=== PATIENT | female | born 1955 | race Caucasian/White ===

== ENCOUNTER → 2020-02-22 14:38 | Outpatient (CLI) | payer SELFPAY ==
--- NOTE | 2020-02-22 15:02 | CT_ITS ---
STUDY: CT LEFT HIP, KNEE AND ANKLE WITHOUT CONTRAST REASON FOR EXAM: Female, 64 years old. Left knee replacement. RADIATION DOSAGE (If Supplied By Facility): CTDIvol = ( 19.12 ) mGy, DLP = ( 1324.48 ) mGycm TECHNIQUE: Thin section transaxial imaging of the hip, knee and ankle was obtained, with sagittal and coronal reconstructed images. Individualized dose optimization techniques were used for this CT. COMPARISON: None. FINDINGS: There are osteoarthritic changes of the femoral head with marginal osteophyte formation. There is osteoarthritic spur formation of the acetabular rim. There is mild articular joint space narrowing. Normal visualized superior and inferior pubic rami and ischial tuberosities. Advanced degenerative arthrosis noted in the left knee were prominent in the medial femorotibial joint. Anatomic alignment of the osseous structures in the ankle. CT/Extremity Lower without Contra IMPRESSION: Severe degenerative arthrosis knee left knee. Electronically Signed: Lashae Page, at 3:00 EST Tel , Service support ,
== END ==
PROVIDERS: PCP Family Medicine; Referring Provider Specialist; Visit Provider Specialist
DX: M21.162 Varus deformity, not elsewhere classified, left knee (principal)
CPT/HCPCS: 73700

== ENCOUNTER 2020-03-09 08:30 | Observation (INO) | payer SELFPAY ==
[2020-02-22 15:58] LABS: Absolute Neutrophil Count 2.8 X10^3/uL (2.0-7.7); Basophil# 0.04 X10^3/uL; Basophil% 0.7 % (0-1); Eosinophil# 0.14 X10^3/uL; Eosinophils% 2.4 % (0-5); Hematocrit 41.5 % (37-47); Hemoglobin 13.5 g/dL (12.0-15.0); Lymphocyte % 37.8 % (19-41); Mean Corp Hgb Conc 32.5 g/dL (32-36); Mean Corpuscular Hgb 28.9 pg (27.0-32.0); Mean Corpuscular Volume 88.9 fL (81-99); Monocyte# 0.59 X10^3/uL; Monocyte% 10.1 % (0-10); NRBC Flagged by Analyzer 0 % (0-5); Neutrophil # 2.82 X10^3/uL (2.7-7.7); Neutrophil % 48.5 % (47-70); Platelet Count 201 K/mm3 (150-450); RBC Distribution Width CV 12.3 % (11.6-14.6); Red Blood Count 4.67 M/mm3 (4.2-5.4); White Blood Count 5.8 K/mm3 (4.4-11.0)
--- NOTE | 2020-02-22 16:48 | PCM.HP.BLA ---
History and Physical History and Physical [facility] Patient Name: Gwendolyn Swanson : 1955 From: BARBER CAI PA-C DATE OF SURGERY: 03/09/2020 SCHEDULED PROCEDURE: left total knee arthroplasty HISTORY OF PRESENT ILLNESS: Preoperative history and physical exam was performed on February 22, 2020. This is a 64-year-old female who has had ongoing pain for several years with her left knee. Patient had an injury in 2014 in which she had to have a arthroscopic surgery. Patient's pain has been constant, aching, sharp, stabbing. She gets occasional spasms in the knee. Patient states she has increased pain with walking and bending or kneeling. Pain is increased with going up and down stairs. Her pain is over the medial joint line. Patient has tried previous conservative measures including stem cell injections with no relief, meloxicam, Visco supplementation injections without relief, compression socks. Patient has tripped/stumbled due to the knee pain. She feels unsafe walking on uneven surfaces. Patient has difficulty with activities of daily living including shopping and leisure activities such as walking. Patient has been using a walker for the past 2 weeks. She denies recent chest pain, shortness of breath, fevers chills, recent infections. We are obtaining surgical clearance from her primary care physician Dr. Moses. After failing conservative measures and discussing treatment options with Dr. Bc Earl, the patient does wish to proceed with a left total knee arthroplasty. REVIEW OF SYSTEMS: ROS: Const: Denies anorexia, change in appetite, fever, hard of hearing, vision problems and weight change. CV: Reports irregular heartbeat, but denies chest pain, heart murmur and peripheral vascular disease. Resp: Reports asthma and cough, but denies pneumonia, sleep apnea, SOB, tuberculosis and wheezing. GI: Reports constipation and diarrhea, but denies difficulty swallowing, heartburn, nausea, bloody stools and vomiting. : Denies female genital problems. Urinary: denies incontinence. Musculo: Reports leg swelling, limp, trouble walking and weakness. Skin: Denies Raynaud's, history of shingles and tattoo. Neuro: Reports numbness/tingling but denies ambulatory dysfunction, dizziness and tremor. Psych: Denies anxiety, depression, insomnia, mental illness and stress. Gerardo/Lymph: Reports bleeding/bruising tendency, but denies anemia and past transfusion. Reviewed and updated. PAST MEDICAL HISTORY: PMH: Medical Problems: Arthritis, Fibromyalgia, High Blood Pressure, Mitral Valve Prolapse, Hypercholesterolemia Accidents: Negative For None Surgical Hx: Gall Bladder - 1985 [facility] Appendectomy - 1985 D&C - 1996 [place] [facility] LT Knee Arthroscopy Anesthesia Complications: None Assistive Devices: Glasses Reviewed, no changes. SOCIAL HISTORY: SH: Marital: .Occupation: Homemaker.Work Status: Housewife.Hand Dominance: Right-handed. Personal Habits: Cigarette Use: Never Smoked Cigarettes.Alcohol: Negative For Denies use.Drug Use: Denies Use.Enjoy Exercising: Never Exercises. Reviewed and updated. VITALS: Ht: 62.5 Wt: 191lb Wt k.638 BMI: 34.4 BP: 120/78 Pulse: 78 T: 96.8 T: 36.0C Pain Level: 5 ALLERGIES: Cotrim DS - Rash MEDICATIONS: Diphenatol 1-2 four times a day prn, Elavil 10 mg one po qhs, Diflucan 150 mg 1 by mouth, Inderal 20 mg one q am, Lopid 600 mg one bid, Tylenol/Codeine #3 300-30 mg 1-2 po q 4-6hrs prn pain, Rectosol HC one po qhs, Advair Diskus prn, Singulair 10 mg 1 po qd, Lisinopril 20 mg 1 po qd, Multivitamin daily, Glucosamine Chondroitin 750/600 mg. 1 po qd, Hydrochlorothiazide 25 mg 1po qday, Pravastatin Sodium 40 mg 1po qhs, Xanax 2 mg prn, Amlodipine Besylate 5 mg 1po bid, Toprol XL 50 mg 1po qhs, Vitamin E 400 Unit 1po qday, Vitamin C 500mg 1po qday, Fish Oil 1000 mg 1po qday, Potassium 99 mg 1po qday, Metformin HCL 850 mg 1po daily, Vitamin D3 25 mcg (1000 Ut) 2po daily, Tramadol HCL 50 mg 1-2 by mouth every 6 hours as needed pain PRE-OP EXAM: General appearance:NORMAL Other: Eyes: Conjunctivae and lids: NORMAL Pupils: ERR Ears, Nose, Mouth, and Throat: NORMAL Other: Inspection of lips, teeth and gums: NORMAL Other: Neck: Examination of neck: no masses noted. Respiratory: Assessment of respiratory effort: NORMAL Other: Auscultation of lungs: clear to auscultation no wheezes, rhonchi or rales. Cardiovascular: Auscultation of heart: regular rate and rhythm, no murmurs, gallops or rubs. Exam of carotid arteries: NORMAL Other: Gastrointestinal: Exam of abdomen: soft, nontender, nondistended bowel sounds present. PHYSICAL EXAMINATION: Patient walks with an antalgic gait. Left knee is cool to touch without erythema or signs of infection. Patient does have positive effusion. Range of motion: He lacks 5 of full extension to 120 flexion with crepitus. There is tenderness to palpation over the medial joint line. She has correctable varus alignment. Sensation intact to light touch. IMAGING STUDIES: Previous x-rays of the left knee reveal varus alignment with medial joint space narrowing, subchondral sclerosis, osteophyte formation consistent with severe tricompartmental osteoarthritis IMPRESSION: 1. Left knee severe tricompartmental osteoarthritis 2. Hypertension 3. Fibromyalgia 4. Hypercholesterolemia 5. Mitral valve prolapse PLAN: Dr. Bc Earl did discuss and review with the patient all treatment options including surgical versus nonsurgical options. Patient does wish to proceed with the above-stated procedure. Potential risks, benefits, and complications of the procedure were discussed in detail including but not limited to , infection, nerve and blood vessel damage, persistent pain, numbness, tingling, paresthesias, blood clot, pulmonary embolism, and requirement for possible further surgery. The patient expressed full understanding and has no further questions for the doctor. Patient does agree to proceed with the above-stated procedure and has signed the surgery consent form. We discussed the current risks associated with COVID 19. This does include the risk of exposure while in the hospital. Patient was reassured local hospitals have low infection rates and are taking all necessary precautions to avoid exposure to patients. In addition, we discussed strategies that can be used to help limit exposure including those that limit the patient's time in the hospital. Also using strategies to limit the patient's need for continued inpatient services after being discharged from the hospital. Patient was notified that we will need to comply with any screening or testing the hospital wishes to perform or that surgery may be delayed for any positive results. This dictation was created using voice recognition software. Phonetic and/or grammatical errors may exist. ___ I have re-examined the patient. There are no clinical changes since date of exam. ___ See progress notes for changes. ___ Dictated on admission Date: Time: Signature:
[2020-02-22 17:12] LABS: Anion Gap 6 (5-15); BUN 32 mg/dL (7-18); Calcium,Total 11.2 mg/dL (8.5-10.1); Chloride 105 mmol/L (98-107); Creatinine, Serum 0.67 mg/dL (0.55-1.02); EST Glomerular Filtration Rate 95 mL/min (>60); Est Glom Filt Rate - Afr Amer 115 mL/min (>60); Glucose 115 mg/dL (74-106); Potassium 3.8 mmol/L (3.5-5.1); Sodium Level 140 mmol/L (136-145)
[2020-02-24 11:01] LABS: Magnesium 1.9 mg/dL (1.6-2.6)
[2020-02-24 11:13] LABS: Hemoglobin A1c 6.8 % (3.8-5.6)
--- NOTE | 2020-03-07 09:14 | EKG12_ITS ---
Test Reason : PRE OP Blood Pressure : / mmHG Vent. Rate : 077 BPM Atrial Rate : 077 BPM P-R Int : 178 ms QRS Dur : 088 ms QT Int : 380 ms P-R-T Axes : 048 -03 020 degrees QTc Int : 430 ms Normal sinus rhythm Nonspecific ST and T wave abnormality Abnormal ECG Confirmed by KRYSTAL STROUD, VIANEY ([id number]), online editor VITA HERMAN ([id number]) on 03/08/2020 9:24:55 AM Referred By: Bc Earl Confirmed By:VIANEY RICE MD
[2020-03-09] VITALS (14 sets, daily range): BP systolic 113–144; BP diastolic 64–95; PULSE 76–103; RESP 16–18; TEMP 36.1–36.8; O2SAT 93–100; BMI 32.4
[2020-03-09] MEDS: Lactated Ringers 1,000 ML 75 ML IV (07:00)
[2020-03-09] MEDS: Lactated Ringers 1,000 ML 125 ML IV ×2 (07:00→20:53)
[2020-03-09] MEDS: Lactated Ringers 1,000 ML 999 ML IV ×2 (07:00→08:34)
[2020-03-09] MEDS: Gabapentin 600 MG Tablet PO (08:33)
[2020-03-09] MEDS: Celecoxib 200 MG Capsule 400 MG PO (08:33)
[2020-03-09] MEDS: Acetaminophen 500 MG Tablet 1000 MG PO ×3 (08:33→22:47)
[2020-03-09] MEDS: Scopolamine 1mg/72hr Patch 1 PATCH TD (08:33)
[2020-03-09 08:45] LABS: Bedside Glucose 149 mg/dL (70-110)
[2020-03-09] MEDS: Cefazolin 2 GM in 0.9% Normal Saline 100 ML IV (08:57)
[2020-03-09] MEDS: dexAMETHasone 10 MG/ML Vial IV (09:30)
--- NOTE | 2020-03-09 10:35 | OP.PCM_ITS ---
Report of Operation Date of Procedure: 03/09/20 Pre-Operative Diagnosis: Left knee primary osteoarthritis Post-Operative Diagnosis: Left knee primary osteoarthritis Surgery/Procedure Performed:: Left knee minimally invasive robotic assisted total knee replacement Description of Surgical Findings:: Stable knee with good patella tracking disability insurance hearing officer: Charlie Morrison Type of Anesthesia:: Spinal Anesthesiologist: Martinez Colin Special Medications: 2 g Ancef, 1 g TXA at incision, 1 g TXA closure, 10 mg Decadron, joint cocktail (5 mg Duramorph, 30 mL of 0.5% Ropivicaine, 1000 units of epinephrine, 30 mg of Toradol) Specimen's removed: Bony cuts Estimated Blood Loss (mL): 75 Fluids Replaced: 1500 mL crystalloid Description of Procedure: Implants used: 1. Paula size 2 triathlon cruciate retaining distal femoral press-fit component 2. Paula size 3 press-fit tritanium tibial baseplate 3. [place] X3 11 millimeters CS polyethylene 4. Paula X3 29 mm asymmetric patella Brief history operative indications: 64-year-old F with history of left knee osteoarthritis with radiographic findings with loss of joint space, osteophyte formation and subchondral sclerosis. Failed conservative measures as mentioned in the H&P. Discussion of total knee arthroplasty as well as risk and benefits were discussed the patient including but not limited to blood loss, DVTs, PEs, neurovascular damage, general risk of anesthesia including loss of life, and stiffness or instability were discussed with patient. Patient demonstrated understanding and was able to sign informed consent. Procedure: On the date of procedure patient's left lower extremity was marked in the preoperative area. The patient was then taken back to the operating room where the patient was placed on the table in the supine position. All bony prominences were identified a well-padded. Anesthesia assumed control of the C-spine and airway and remained controlled throughout the remainder of the procedure. A tourniquet was placed on the left upper thigh and the leg was prepped in a sterile fashion. The surgeon then scrubbed at this time .Upon reentering the room left lower extremity was draped in a standard orthopedic fashion. A timeout was then called and everyone agreed upon the side, the site, the procedure to be performed, patient's identity and antibiotics given. Esmarch bandage was used to exsanguinate the extremity and the tourniquet was placed up to 250 mmHg with the knee in flexion. A midline skin incision was made and sharp dissection was taken down through skin subcutaneous tissue and fat. The standard medial parapatellar incision was made and the patella was subluxed laterally. An Appropriate deep MCL release was done and the fat pad was resected. Our attention was then directed to the patella. The patella was everted and a flat resection was made. The knee was then flexed up in 2 femoral pins were placed inside the incision and 2 tibial pins were placed outside the incision in the medial tibia bicortically. Once this was completed the 2 checkpoints in the femur and tibia were placed. Knee was then flexed up and the bony landmarks were registered. Once this was completed knee was taken through range of motion and manually str essed allowing us to a plan for an appropriate tibial cut. The robotic arm was brought into the field sterilely and checkpoint and saw were registered. Based on the patient's deformity the tibial cut was made in 3 degrees of varus. At this time the tensioner was then placed in the joint and ligament tension was checked at 90 degrees and full extension. Based on the patient's ligamentous tension appropriate adjustments were made to the operative plan and ligament releases were done. Once we were happy with our operative plan with balanced flexion and extension gaps our attention was directed to the femur. The robot was brought into the field sterilely and registered. Posterior condylar cuts, anterior chamfer cuts and anterior cuts were appropriately made for a size 2 femur. When these were completed the saws were switched out in the distal femoral and posterior chamfer cuts were made. Protecting the soft tissue throughout this time. A size 3 tibial base plate was selected. the knee was flexed to 90 degrees and the soft tissues and posterior osteophytes were removed from the joint. 40 cc of the periarticular injection was injected into the posterior medial corner of the joint. The appropriate trials were then placed on the femur and tibia. A trial polyethylene was trialed to ensure proper balancing and stability of the knee. The appropriate tibial internal rotation was then marked with a bovie. Our attention was then directed to the patella. The lug holes were drilled and the patella trial was placed. Patellar tracking was checked and deemed appropriate. Once we were happy lug holes were drilled for the femur and trial components were removed. the tibia was subluxed and pinned into place and the keel was punched and drilled appropriately. Final components were verified and opened, and cement was mixed in a vacuum. [employer] Simplex cement was used. The wound was copiously irrigated with normal saline. When the cement was ready the components were impacted into place starting with the tibia, femur and finally cementing the patella. The trial poly component was placed and the knee was placed in full extension. All excess cement was removed in the process. Once the cement had cured the tracking, alignment and balance were verified and a size 11 mm CS polyethylene component was placed. Once the final components were placed an Irrisept lavage was performed and the wound was copiously irrigated with normal saline solution and the periarticular injection was given. The wound was closed in a layer frazier fashion using #1 vicryl interrupted sutures for the arthrotomy, 2-0 interrupted Vicryl suture for the subcuticular layer and em for final skin closure. A sterile compressive dressing was then placed. The patient was then awakened from anesthesia, transferred to the [facility] and transferred to the PACU for recovery. Post op plan DVT ppx: ASA 81mg BID, thigh high compression stockings Follow up: in office in 2 weeks for wound check PT: to start POD #0 at hospital, outpatient PT should be arranged. - Complications No intraoperative complications - Admit VTE Documentation VTE Present on Admission: No VTE Mechan Device Prophylaxis: SCD's, Thigh High CHRISTEL Hose VTE Pharm Prophylaxis ordered?: Yes
--- NOTE | 2020-03-09 11:20 | RAD_ITS ---
STUDY: X-RAY - LEFT KNEE REASON FOR EXAM: Female, 64 years old. Post op left knee TECHNIQUE: 2 view(s) of the knee. COMPARISON: None. FINDINGS: Normal visualized distal femur. Normal visualized proximal tibia and fibula. Normal proximal tibiofibular articulation. The patient is status post total knee replacement. There is good alignment. Postoperative soft tissue changes. RAD/Knee 1 or 2 Views IMPRESSION: Status post total knee replacement. There is good alignment. Postoperative soft tissue changes. Electronically Signed: Theo Shields, at 11:50 EST , Service support ,
--- NOTE | 2020-03-09 14:52 | PN_ITS ---
Reason for Visit: post op left total knee Subjective: Pt resting comfortably in bed. Sleeping, easily awoken. Pt is a 64 year old fem charles with pmhx of osteoarthritis, Dmt2, HTN, HLD who today underwent left total hip with Dr. Earl. She is doing well post op with minimal complaints. She had a block and currently has no pain. Vitals/I&O's: Vital Signs Temp Pulse Resp BP Pulse Ox 98.2 F 99 18 129/68 H 94 03/09/20 13:18 03/09/20 13:18 03/09/20 13:18 03/09/20 13:18 03/09/20 13:18 Oxygen Flow Rate (L/min) 6 Oxygen Delivery Method Room Air Weight: 189 lb 3.2 oz Body Mass Index (BMI) 32.4 Intake and Output for Last 24 Hours 03/07/20 03/08/20 03/09/20 23:59 23:59 23:59 Intake Total 2435 / 2435 Balance 2435 / 2435 General: Alert, Oriented x3, Cooperative HEENT: Atraumatic, PERRLA, EOMI, Normocephalic Neck: Supple, No JVD, Negative Carotid Bruits Lungs: Clear to auscultation, Normal air movement Cardiovascular: Regular rate, No murmurs Abdomen: Bowel Sounds Present, Soft, Non Tender Extremities: No edema, Capillary Refill Less than 3 Seconds Skin: No rashes, No breakdown Musculoskeletal: No Tenderness to Palpation of Joints or Extremities Neurological: Cranial nerves II-XII grossly intact Psych/Mental Status: Normal Affect, Appropriate Microbiology Past 72 Hours 03/07/20 09:38 Swab (Method) Nasal Screen MRSA/MSSA - Final 03/07/20 Unknown Interface Orders SARS-CoV-2 Antigen (Rapid) - Final Laboratory Results 03/09/20 08:27: POC Glucose 149 H Current Medications Acetaminophen (Acetaminophen 500 Mg Tablet) 1,000 mg PO Q8 KASEY Alprazolam (Alprazolam 0.5 Mg Tablet) 2 mg PO QHS KASEY Alprazolam (Alprazolam 0.5 Mg Tablet) 1 mg PO 0800,1700 KASEY Amitriptyline HCl (Amitriptyline 25 Mg Tablet) 25 mg PO QHS KASEY Amlodipine Besylate (Amlodipine 5 Mg Tablet) 5 mg PO BID KASEY Aspirin (Aspirin 81 Mg Tab.Chew) 81 mg PO BIDCM [facility] Cholecalciferol (Cholecalciferol (Vit D3) 1,000 Unit (25mcg)) 1,000 unit PO BID [facility] Enteral Nutritional Formula (Ensure Surgery 237 Ml Liquid) 237 ml PO TIDCM [facility] Famotidine (Famotidine 20 Mg Tablet) 20 mg PO DAILY KASEY Gemfibrozil (Gemfibrozil 600 Mg Tablet) 600 mg PO BIDAC [facility] Hydrochlorothiazide (Hydrochlorothiazide 12.5mg) 12.5 mg PO DAILY [facility] Lactated Ringer's () 1,000 mls @ 75 mls/hr IV .[id number] [facility] Stop: 03/09/20 20:19 Last Admin: 03/09/20 07:00 Dose: 75 mls/hr Documented by: Lactated Ringer's () 1,000 mls @ 125 mls/hr IV .Q8H [facility] Stop: 03/09/20 14:59 Last Admin: 03/09/20 07:00 Dose: 125 mls/hr Documented by: Lactated Ringer's () 1,000 mls @ 125 mls/hr IV .Q8H [facility] Cefazolin Sodium () 1 gm in 50 mls @ 150 mls/hr IV Q8H [facility] Stop: 03/10/20 01:19 Insulin Human Lispro (Insulin Lispro 100 Unit/Ml Insuln.Pen) 1 - 6 unit SC Q4H PRN PRN; Protocol PRN Reason: BG>/= 180, SEE PROTOCOL Stop: 03/09/20 18:00 Ketorolac Tromethamine (Ketorolac 15 Mg/Ml Vial) 15 mg IV Q6H PRN PRN PRN Reason: Pain Score 1-5 Stop: 03/11/20 07:20 Lisinopril (Lisinopril 20 Mg Tablet) 20 mg PO BID [facility] Meloxicam (Meloxicam 7.5 Mg Tablet) 7.5 mg PO BID [facility] Metformin HCl (Metformin Hcl 850 Mg Tablet) mg PO BID [facility] Metoprolol Succinate (Metoprolol(Xl)Succ 50 Mg Tablet) 50 mg PO QHS [facility] Montelukast Sodium (Montelukast 10 Mg Tablet) 10 mg PO QHS [facility] Morphine Sulfate (Morphine 2 Mg/Ml Syringe) 2 - 4 mg IV Q2H PRN PRN PRN Reason: Pain Score 6-10 Morphine Sulfate (Morphine 4 Mg/Ml Syringe) 2 - 4 mg IV Q2H PRN PRN PRN Reason: Pain Score 6-10 Multivitamins (Multivitamins,Therapeutic Tablet) 1 tablet PO DAILYCM [facility] Ondansetron HCl (Ondansetron 4 Mg/2 Ml Vial) 4 mg IV Q8H PRN PRN PRN Reason: NAUSEA Oxycodone HCl (Oxycodone 5 Mg Tablet) 5 - 10 mg PO Q4H PRN PRN PRN Reason: Pain Score 4-10 Pravastatin Sodium (Pravastatin 40 Mg Tablet) 40 mg PO QHS [facility] Promethazine HCl (Promethazine 25 Mg/Ml Syringe) 12.5 mg IM Q6H PRN PRN; Protocol PRN Reason: NAUSEA/VOMITING Senna/Docusate Sodium (Senna/Docusate Sodium 1 Tablet) 2 tablet PO BID KASEY Sodium Chloride (0.9% Nacl Peripheral Flush Adult/Peds) 5 - 15 ml IV UD PRN PRN Reason: SALINE FLUSH STROKE Vital Signs/Narrative: Vital Signs Temp Pulse Resp BP Pulse Ox 03/09/20 13:18 98.2 F 99 18 129/68 H 94 03/09/20 12:44 97.1 F L 95 16 140/78 H 100 03/09/20 12:30 95 16 134/75 H 100 03/09/20 12:00 92 16 137/74 H 100 03/09/20 11:45 90 16 135/64 H 100 03/09/20 11:30 89 16 122/69 H 100 03/09/20 11:23 86 16 129/70 H 100 03/09/20 11:04 97.0 F L 82 16 113/92 H 99 Medical Necessity - Tobacco Use Smoking Status: Never smoker Assessment/Plan 1. DMt2 - hold metformin, continue SSI. A1C 6.8. 2. HTN -resume home medications tomorrow morning 3. HLD-takes gemfibrozil, pravastatin. ok to resume 4. Osteoarthritis - s/p L total knee POD#0 - doing well no issues. Care as per Dr. Earl. CBC / BMP in AM. DVT ppx: per ortho Thank you for the opportunity to participate in the care of this patient. This patient was seen by Isidro Pantoja PA-C under the supervision of Doctor Dipak.
--- NOTE | 2020-03-09 15:00 | NURSING ---
patient placed on continuous pulse ox with bedside monitor.
[2020-03-09] MEDS: Ensure Surgery 237 ML LIQUID PO (17:42)
[2020-03-09] MEDS: Cefazolin 1 GM/50 ML BAG IV (17:42)
[2020-03-09] MEDS: Gemfibrozil 600 MG Tablet PO (17:43)
[2020-03-09] MEDS: metFORMIN HCl 850 MG Tablet PO (17:43)
[2020-03-09] MEDS: Famotidine 20 MG Tablet PO (17:43)
[2020-03-09] MEDS: Aspirin 81 MG TAB.CHEW PO (17:43)
[2020-03-09] MEDS: ALPRAZolam 0.5 MG Tablet 2 MG PO (22:47)
[2020-03-09] MEDS: amLODIPine 5 MG Tablet PO (22:48)
[2020-03-09] MEDS: Pravastatin 40 MG Tablet PO (22:48)
[2020-03-09] MEDS: Amitriptyline 25 MG Tablet PO (22:48)
[2020-03-09] MEDS: Senna/Docusate Sodium 1 Tablet 2 TABLET PO (22:49)
[2020-03-09] MEDS: Metoprolol(XL)Succ 50 MG Tablet PO (22:50)
[2020-03-09] MEDS: Montelukast 10 MG Tablet PO (22:50)
[2020-03-09] MEDS: Lisinopril 20 MG Tablet PO (22:50)
[2020-03-10] MEDS: Cefazolin 1 GM/50 ML BAG IV (00:46)
[2020-03-10 03:00] VITALS: BP 154/74; PULSE 94; RESP 18; TEMP 36.7; O2SAT 98
[2020-03-10] MEDS: Acetaminophen 500 MG Tablet 1000 MG PO ×2 (05:29→14:51)
[2020-03-10] MEDS: Gemfibrozil 600 MG Tablet PO ×2 (06:57→16:13)
[2020-03-10] MEDS: Ensure Surgery 237 ML LIQUID PO ×2 (07:51→16:12)
[2020-03-10] MEDS: Aspirin 81 MG TAB.CHEW PO ×2 (07:52→16:13)
[2020-03-10] MEDS: Multivitamins,Therapeutic Tablet 1 TABLET PO (07:52)
[2020-03-10] MEDS: metFORMIN HCl 850 MG Tablet PO (07:52)
[2020-03-10] MEDS: ALPRAZolam 0.5 MG Tablet 1 MG PO ×2 (07:52→16:13)
--- NOTE | 2020-03-10 07:59 | PN.ORTHO_ITS ---
Subjective: The patient was sitting in bedside chair upon examination. Patient denies any chest pain, shortness of breath, dizziness, lightheadedness, nausea or vomiting, or calf pain. Pain is controlled on medications. No adverse overnight events. Patient's pain is been well controlled and she has been up to the bathroom tolerating walking very well. She has not begun any physical therapy yet. Plan is for probable discharge home today. Objective: Vital signs stable and afebrile. Patient is able to plantarflex and dorsiflex actively. Sensation is intact to light touch to saphenous, sural, superficial and deep peroneal, and tibial distribution. Dressing is mild discharge over the distal portion of the main dressing with r emaining dressing clean dry and intact. Minimal discharge over the distal pin site dressing. Negative Homans bilaterally, negative signs and symptoms of DVT. - Physical Exam Vitals/I&O's: Vital Signs Temp Pulse Resp BP Pulse Ox 98.0 F 94 18 154/74 H 98 03/10/20 03:00 03/10/20 03:00 03/10/20 03:00 03/10/20 03:00 03/10/20 03:00 Oxygen Flow Rate (L/min) 6 Oxygen Delivery Method Room Air Weight: 85.82 kg Body Mass Index (BMI) 32.4 Intake and Output for Last 24 Hours 03/08/20 03/09/20 03/10/20 23:59 23:59 23:59 Intake Total 4885 / 5485 2188.17 / 2188.17 Output Total 1000 / 1800 800 / 800 Balance 3885 / 3685 1388.17 / 1388.17 General: Alert, Oriented x3, Cooperative, No apparent distress Microbiology Past 72 Hours 03/07/20 09:38 Swab (Method) Nasal Screen MRSA/MSSA - Final 03/07/20 Unknown Interface Orders SARS-CoV-2 Antigen (Rapid) - Final Laboratory Results 03/09/20 08:27: POC Glucose 149 H 03/10/20 07:08: WBC Pending, RBC Pending, Hgb Pending, Hct Pending, MCV Pending, MCH Pending, MCHC Pending, RDW Std Deviation Pending, RDW Coeff of Louise Pending, Plt Count Pending 03/10/20 07:08: Sodium Pending, Potassium Pending, Chloride Pending, Carbon Dioxide Pending, Anion Gap Pending, BUN Pending, Creatinine Pending, Est GFR (MDRD) Af Amer Pending, Est GFR (MDRD) Non-Af Pending, BUN/Creatinine Ratio Pending, Glucose Pending, Calcium Pending Current Medications Acetaminophen (Acetaminophen 500 Mg Tablet) 1,000 mg PO Q8 [facility] Last Admin: 03/10/20 05:29 Dose: 1,000 mg Documented by: Alprazolam (Alprazolam 0.5 Mg Tablet) 2 mg PO QHS [facility] Last Admin: 03/09/20 22:47 Dose: 2 mg Documented by: Alprazolam (Alprazolam 0.5 Mg Tablet) 1 mg PO 0800,1700 [facility] Last Admin: 03/10/20 07:52 Dose: 1 mg Documented by: Amitriptyline HCl (Amitriptyline 25 Mg Tablet) 25 mg PO QHS [facility] Last Admin: 03/09/20 22:48 Dose: 25 mg Documented by: Amlodipine Besylate (Amlodipine 5 Mg Tablet) 5 mg PO BID [facility] Last Admin: 03/09/20 22:48 Dose: 5 mg Documented by: Aspirin (Aspirin 81 Mg Tab.Chew) 81 mg PO BIDCM [facility] Last Admin: 03/10/20 07:52 Dose: 81 mg Documented by: Cholecalciferol (Cholecalciferol (Vit D3) 1,000 Unit (25mcg)) 1,000 unit PO BID [facility] Last Admin: 03/09/20 22:50 Dose: 1,000 unit Documented by: Enteral Nutritional Formula (Ensure Surgery 237 Ml Liquid) 237 ml PO TIDCM [facility] Last Admin: 03/10/20 07:51 Dose: 237 ml Documented by: Famotidine (Famotidine 20 Mg Tablet) 20 mg PO DAILY [facility] Last Admin: 03/09/20 17:43 Dose: 20 mg Documented by: Gemfibrozil (Gemfibrozil 600 Mg Tablet) 600 mg PO BIDAC [facility] Last Admin: 03/10/20 06:57 Dose: 600 mg Documented by: Hydrochlorothiazide (Hydrochlorothiazide 12.5mg) 12.5 mg PO DAILY [facility] Last Admin: 03/09/20 17:36 Dose: Not Given Documented by: Ketorolac Tromethamine (Ketorolac 15 Mg/Ml Vial) 15 mg IV Q6H PRN PRN PRN Reason: Pain Score 1-5 Stop: 03/11/20 07:20 Lisinopril (Lisinopril 20 Mg Tablet) 20 mg PO BID [facility] Last Admin: 03/09/20 22:50 Dose: 20 mg Documented by: Meloxicam (Meloxicam 7.5 Mg Tablet) 7.5 mg PO BID [facility] Metformin HCl (Metformin Hcl 850 Mg Tablet) [facility] Admin: 03/10/20 07:52 Dose: 850 mg Documented by: Metoprolol Succinate (Metoprolol(Xl)Succ 50 Mg Tablet) 50 mg PO QHS [facility] Last Admin: 03/09/20 22:50 Dose: 50 mg Documented by: Montelukast Sodium ([facility]eluk[facility] 10 Mg Tablet) [facility] Admin: 03/09/20 22:50 Dose: 10 mg Documented by: Morphine Sulfate (Morphine 2 Mg/Ml Syringe) 2 - 4 mg IV Q2H PRN PRN PRN Reason: Pain Score 6-10 Morphine Sulfate (Morphine 4 Mg/Ml Syringe) 2 - 4 mg IV Q2H PRN PRN PRN Reason: Pain Score 6-10 Multivitamins (Multivitamins,Therapeutic Tablet) [facility] Last Admin: 03/10/20 07:52 Dose: 1 tablet Documented by: Ondansetron HCl (Ondansetron 4 Mg/2 Ml Vial) 4 mg IV Q8H PRN PRN PRN Reason: NAUSEA Oxycodone HCl (Oxycodone 5 Mg Tablet) 5 - 10 mg PO Q4H PRN PRN PRN Reason: Pain Score 4-10 Pravastatin Sodium (Pravastatin 40 Mg Tablet) 40 mg PO QHS [facility] Last Admin: 03/09/20 22:48 Dose: 40 mg Documented by: Promethazine HCl (Promethazine 25 Mg/Ml Syringe) 12.5 mg IM Q6H PRN PRN; Protocol PRN Reason: NAUSEA/VOMITING Senna/Docusate Sodium (Senna/Docusate Sodium 1 Tablet) 2 tablet PO BID [facility] Last Admin: 03/09/20 22:49 Dose: 2 tablet Documented by: Sodium Chloride (0.9% Nacl Peripheral Flush Adult/Peds) 5 - 15 ml IV UD PRN PRN Reason: SALINE FLUSH Sodium Chloride (0.9% Saline Lock 10 Ml Syringe) 10 - 40 ml IV UD PRN PRN Reason: SALINE FLUSH Medical Necessity - Tobacco Use Smoking Status: Never smoker Assessment/Plan 1. S/P left total knee arthroplasty POD #1 2. Continue Pain Medications: Tylenol, meloxicam, oxycodone 3. DVT Prophylaxis: Take 81 mg aspirin twice daily for 4 weeks postoperatively for DVT prophylaxis 4. PT/OT: Weightbearing as tolerated 5. H & H: 11.4/34.5, asymptomatic. Postoperative anemia secondary to acute blood loss from surgery without any intraoperative complications 7. Reactive leukocytosis: Currently 11.3, afebrile. Patient did receive Decadron intraoperatively 8. Continue postoperative medical management per medicine 9. Encouraged Incentive Spirometry 10. Disposition: Plan will be for probable discharge home today as long as pain is well controlled and patient tolerates physical therapy. We did discuss her block which could wear off approximately 24 hours post surgery. She currently has outpatient physical therapy established. She will follow-up per postop instructions. Prescriptions will be E scribed to [facility] pharmacy. I have reviewed the [place] Automated Rx Reporting System (OARRS) report for this patient for refill pattern and other prescriber involvement as part of the appropriate surveillance for the provision of acute and chronic controlled medications. The report was requested and reviewed on the date of this entry and was considered in the prescribing process.
[2020-03-10 08:00] LABS: Hematocrit 34.5 % (37-47); Hemoglobin 11.4 g/dL (12.0-15.0); Mean Corpuscular Hgb 29.4 pg (27.0-32.0); Mean Corpuscular Volume 88.9 fL (81-99); Mean Platelet Vol. 9.7 fl (6.2-12.0); Platelet Count 215 K/mm3 (150-450); RBC Distribution Width SD 41.8 fl (35.1-43.9); Red Blood Count 3.88 M/mm3 (4.2-5.4); White Blood Count 11.3 K/mm3 (4.4-11.0)
--- NOTE | 2020-03-10 08:08 | PCM.DC.TKR ---
Discharge Diet: No Restrictions Discharge Activity: May Not Drive May shower in (days): 1 - Dressing must be intact to skin. During dressing away from water Ice area for (Minutes): 20 - Every 1-2 hours while awake Weight Bearing Status: Weight bearing as tolerated Elevate: Operative Extremity Additional Activity Instructions:: Wear elastic stockings for 2 weeks after your surgery. Call your doctor if your incision/area has: Continuous Slow Oozing, Sudden Increased Bleeding, Increased Pain/ Swelling, Increased Redness, Foul Smelling Discharge Call your doctor if you observe: Fever of 101 or Higher, Coldness, Increased Pain, Numbness or Tingling, Change in Color, Calf discomfort, Uncontrolled pain Remove Dressing in (days):: 4 - Okay to remove dressing on March 14, 2020 Additional Instructions: Follow [facility] Post-op Instructions. Once postoperative dressing has been removed only use gentle soap and water over the incision. Do not use any ointments, Neosporin, salves, alcohol pads over the incision for 6 weeks postoperatively. Do not submerge underwater for 6 weeks postoperatively. Allergies/Adverse Reactions: Allergies meperidine [From Demerol] Adverse Reaction (Verified 03/09/20 08:21) PT UNSURE OF REACTION Medications to take at Discharge ALPRAZolam [Xanax] 1 mg PO BID 02/24/20 ALPRAZolam [Xanax] 2 mg PO QHS 02/24/20 Amitriptyline HCl [Elavil] 25 mg PO QHS 02/24/20 Amlodipine [Norvasc] 5 mg PO BID 02/24/20 Cholecalciferol (Vitamin D3) [Vitamin D3] 25 mcg PO BID 02/24/20 Gemfibrozil [Lopid] 600 mg PO BID 02/24/20 Hydrochlorothiazide [Hctz] 12.5 mg PO DAILY 02/24/20 Lisinopril 20 mg PO BID 02/24/20 Metformin HCl 0.5 tab PO BID 02/24/20 Metoprolol Succinate [Toprol Xl] 50 mg PO QHS 02/24/20 Montelukast [Singulair] 10 mg PO QHS 02/24/20 Multivitamin 1 ea PO DAILY 02/24/20 Potassium Gluconate [Potassium] 99 mg PO QHS 02/24/20 Pravastatin [Pravachol] 40 mg PO QHS 02/24/20 Vitamin E 400 unit PO DAILY 02/24/20 Acetaminophen [Tylenol] 1,000 mg PO Q8 #100 tab 03/10/20 Aspirin [Aspirin, Baby] 81 mg PO BIDCM #60 tab 03/10/20 Famotidine [Pepcid] 20 mg PO DAILY #30 tab 03/10/20 Meloxicam [Mobic] 7.5 mg PO BID #60 tab 03/10/20 Oxycodone [Oxyir] 5 - 10 mg PO Q4H PRN PRN 4 Days #48 tab 03/10/20 Senna/Docusate Sodium [Senokot-S] 2 tab PO BID #14 tab 03/10/20 The following prescriptions were given: Aspirin [Aspirin, Baby] 81 mg PO BIDCM #60 tab Transmission Status: Pending to [facility] Meloxicam [Mobic] 7.5 mg PO BID #60 tab Transmission Status: Pending to [facility] Oxycodone [Oxyir] 5 - 10 mg PO Q4H PRN PRN 4 Days #48 tab PRN Reason: Pain Score 4-10 Transmission Status: Sent to [facility] Famotidine [Pepcid] 20 mg PO DAILY #30 tab Transmission Status: Pending to [facility] Senna/Docusate Sodium [Senokot-S] 2 tab PO BID #14 tab Transmission Status: Pending to [facility] Acetaminophen [Tylenol] 1,000 mg PO Q8 #100 tab Transmission Status: Pending to [facility] Primary Care Physician: Evaristo Tesfaye DO [Primary Care Provider] - Test Results: Test results from this visit will be discussed in further detail at your follow-up appointment, if applicable. Please Follow Up With: Physical Therapy [facility] When: 03/14/20 Please Follow Up With: Jameel Costa PA-C When: 03/23/20 @ 9:15 am with Jameel
[2020-03-10 08:14] LABS: Anion Gap 6 (5-15); BUN 18 mg/dL (7-18); BUN/Creat Ratio 27.5 RATIO (10-20); Calcium,Total 9.8 mg/dL (8.5-10.1); Chloride 108 mmol/L (98-107); Creatinine, Serum 0.65 mg/dL (0.55-1.02); EST Glomerular Filtration Rate 97 mL/min (>60); Est Glom Filt Rate - Afr Amer 117 mL/min (>60); Glucose 172 mg/dL (74-106); Sodium Level 141 mmol/L (136-145)
[2020-03-10] MEDS: Famotidine 20 MG Tablet PO (10:10)
[2020-03-10] MEDS: hydroCHLOROthiazide 12.5mg 12.5 MG PO (10:10)
[2020-03-10 10:14] VITALS: BP 122/68; PULSE 87; RESP 12; TEMP 36.8; O2SAT 99
[2020-03-10] MEDS: Lisinopril 20 MG Tablet PO (10:17)
[2020-03-10] MEDS: amLODIPine 5 MG Tablet PO (10:17)
[2020-03-10] MEDS: oxyCODONE 5 MG Tablet PO (10:24)
--- NOTE | 2020-03-10 10:40 | CASEMGMT ---
GISELA JENNINGS Face to Face with patient for initial transition planning/care coordination assessment. RN CM introduced self and role at [facility]. Patient sitting in chair, alert and oriented. Patient willing to participate in assessment and is able to answer all questions appropriately. Care providers, pharmacy, and demographics verified. Patient wishes to discharge home and is setup with [facility] for outpatient therapy. Patient states she has no further needs or concerns at this time. CM to follow for discharge planning needs that may arise. PCP: Dr. Berry Moses Specialists: lorena Earl Pharmacy: [facility] at discharge Insurance: self pay Prescription Benefit: none Living Will/HPOA: yes, Sunny Swanson HPOA LNOK: Living Arrangements: Patient lives with in a single story home with 2 steps to enter the home. Patient states she was independent at home prior to surgery. Transportation: DME/HHC: Patient states she has shower chair, raised toilet, cane, crutches, walker, and wheelchair at home. Patient is setup with [facility] for outpatient therapy starting 03/14. Disposition Plan: Patient to discharge home with family support and follow-up plans in place. Sarah PEÑA, RN, CM
--- NOTE | 2020-03-10 11:00 | PCM.PN.HOSP ---
Subjective: Pt states that she is feeling well. PT at bedside and going home today. Vitals/I&O's: Vital Signs Temp Pulse Resp BP Pulse Ox 98.3 F 87 12 122/68 H 99 03/10/20 10:14 03/10/20 10:14 03/10/20 10:14 03/10/20 10:14 03/10/20 10:14 Oxygen Flow Rate (L/min) 6 Oxygen Delivery Method Room Air Weight: 85.82 kg Body Mass Index (BMI) 32.4 Intake and Output for Last 24 Hours 03/08/20 03/09/20 03/10/20 23:59 23:59 23:59 Intake Total 4885 / 5485 2188.17 / 2188.17 Output Total 1000 / 1800 800 / 800 Balance 3885 / 3685 1388.17 / 1388.17 General: Alert, Oriented x3, Cooperative, No apparent distress, Well developed, Well nourished, - - sitting up in bed with therapy at bedside doing exercises HEENT: Atraumatic, Normocephalic Lungs: Clear to auscultation, Normal air movement, No rhonchi, No wheeze, No rales Cardiovascular: Regular rate, Regular Rhythm, Normal S1, Normal S2, No murmurs, No Ectopic Activity, No rub noted, No Gallop Abdomen: Bowel Sounds Present, Soft, Non Tender, Non-Distended, No Hepato-splenomegaly Extremities: No clubbing, No cyanosis, Capillary Refill Less than 3 Seconds, Edema - mild LLE, Peripheral Pulses Normal, - - CHRISTEL hose B LE in place Neurological: Cranial nerves II-XII grossly intact, Neuro grossly intact Psych/Mental Status: Normal Affect, Appropriate, - - very talkative Microbiology Past 72 Hours 03/07/20 09:38 Swab (Method) Nasal Screen MRSA/MSSA - Final 03/07/20 Unknown Interface Orders SARS-CoV-2 Antigen (Rapid) - Final Laboratory Results 03/10/20 07:08: WBC 11.3 H, RBC 3.88 L, Hgb 11.4 L, Hct 34.5 L, MCV 88.9, MCH 29.4, MCHC 33.0, RDW Std Deviation 41.8, RDW Coeff of Louise 13.0, Plt Count 215, MPV 9.7 03/10/20 07:08: Sodium 141, Potassium 4.0, Chloride 108 H, Carbon Dioxide 27.0, Anion Gap 6, BUN 18, Creatinine 0.65, Estim Creat Clear Calc 76.50, Est GFR (MDRD) Af Amer 117, Est GFR (MDRD) Non-Af 97, BUN/Creatinine Ratio 27.5 H, Glucose 172 H, Calcium 9.8 Current Medications Acetaminophen (Acetaminophen 500 Mg Tablet) 1,000 mg PO Q8 [facility] Last Admin: 03/10/20 05:29 Dose: 1,000 mg Documented by: Alprazolam (Alprazolam 0.5 Mg Tablet) 2 mg PO QHS [facility] Last Admin: 03/09/20 22:47 Dose: 2 mg Documented by: Alprazolam (Alprazolam 0.5 Mg Tablet) 1 mg PO 0800,1700 [facility] Last Admin: 03/10/20 07:52 Dose: 1 mg Documented by: Amitriptyline HCl (Amitriptyline 25 Mg Tablet) 25 mg PO QHS [facility] Last Admin: 03/09/20 22:48 Dose: 25 mg Documented by: Amlodipine Besylate (Amlodipine 5 Mg Tablet) 5 mg PO BID [facility] Last Admin: 03/10/20 10:17 Dose: 5 mg Documented by: Aspirin (Aspirin 81 Mg Tab.Chew) 81 mg PO BIDCM [facility] Last Admin: 03/10/20 07:52 Dose: 81 mg Documented by: Cholecalciferol (Cholecalciferol (Vit D3) 1,000 Unit (25mcg)) 1,000 unit PO BID [facility] Last Admin: 03/10/20 10:17 Dose: 1,000 unit Documented by: Enteral Nutritional Formula (Ensure Surgery 237 Ml Liquid) 237 ml PO TIDCM [facility] Last Admin: 03/10/20 07:51 Dose: 237 ml Documented by: Famotidine (Famotidine 20 Mg Tablet) 20 mg PO DAILY [facility] Last Admin: 03/10/20 10:10 Dose: 20 mg Documented by: Gemfibrozil (Gemfibrozil 600 Mg Tablet) 600 mg PO BIDAC [facility] Last Admin: 03/10/20 06:57 Dose: 600 mg Documented by: Hydrochlorothiazide (Hydrochlorothiazide 12.5mg) 12.5 mg PO DAILY [facility] Last Admin: 03/10/20 10:10 Dose: 12.5 mg Documented by: Ketorolac Tromethamine (Ketorolac 15 Mg/Ml Vial) 15 mg IV Q6H PRN PRN PRN Reason: Pain Score 1-5 Stop: 03/11/20 07:20 Lisinopril (Lisinopril 20 Mg Tablet) 20 mg PO BID [facility] Last Admin: 03/10/20 10:17 Dose: 20 mg Documented by: Meloxicam (Meloxicam 7.5 Mg Tablet) 7.5 mg PO BID [facility] Metformin HCl (Metformin Hcl 850 Mg Tablet) [facility] Last Admin: 03/10/20 07:52 Dose: 850 mg Documented by: Metoprolol Succinate (Metoprolol(Xl)Succ 50 Mg Tablet) 50 mg PO QHS [facility] Last Admin: 03/09/20 22:50 Dose: 50 mg Documented by: Montelukast Sodium (Montelukast 10 Mg Tablet) 10 mg PO QHS [facility] Last Admin: 03/09/20 22:50 Dose: 10 mg Documented by: Morphine Sulfate (Morphine 2 Mg/Ml Syringe) 2 - 4 mg IV Q2H PRN PRN PRN Reason: Pain Score 6-10 Morphine Sulfate (Morphine 4 Mg/Ml Syringe) 2 - 4 mg IV Q2H PRN PRN PRN Reason: Pain Score 6-10 Multivitamins (Multivitamins,Therapeutic Tablet) [facility] Last Admin: 03/10/20 07:52 Dose: 1 tablet Documented by: Ondansetron HCl (Ondansetron 4 Mg/2 Ml Vial) 4 mg IV Q8H PRN PRN PRN Reason: NAUSEA Oxycodone HCl (Oxycodone 5 Mg Tablet) 5 - 10 mg PO Q4H PRN PRN PRN Reason: Pain Score 4-10 Last Admin: 03/10/20 10:24 Dose: 5 mg Documented by: Pravastatin Sodium (Pravastatin 40 Mg Tablet) 40 mg PO QHS [facility] Last Admin: 03/09/20 22:48 Dose: 40 mg Documented by: Promethazine HCl (Promethazine 25 Mg/Ml Syringe) 12.5 mg IM Q6H PRN PRN; Protocol PRN Reason: NAUSEA/VOMITING Senna/Docusate Sodium (Senna/Docusate Sodium 1 Tablet) 2 tablet PO BID [facility] Last Admin: 03/10/20 10:11 Dose: Not Given Documented by: Sodium Chloride (0.9% Nacl Peripheral Flush Adult/Peds) 5 - 15 ml IV UD PRN PRN Reason: SALINE FLUSH Sodium Chloride (0.9% Saline Lock 10 Ml Syringe) 10 - 40 ml IV UD PRN PRN Reason: SALINE FLUSH STROKE Vital Signs/Narrative: Vital Signs Temp Pulse Resp BP Pulse Ox 03/10/20 10:14 98.3 F 87 12 122/68 H 99 Medical Necessity - Tobacco Use Smoking Status: Never smoker Assessment/Plan L TKA POD 1 -mgt per ortho -doing well -PT/OT DM-2 -cont Metformin HTN restart home meds HPL continue Home meds OA -see above DVT prophylaxis -mgt per ortho Inpatient E&M: 26003 Subs Hosp L2
--- NOTE | 2020-03-10 13:06 | NURSING ---
DR CLINE NOTIFIED VIA TXT MSG, PTS LT FOREARM IS NOW RED/HOT.
[2020-03-10] MEDS: DiphenhydrAMINE 25 MG Capsule PO (14:51)
--- NOTE | 2020-03-10 15:01 | PHA.DC.MC ---
Pharmacy Service has performed discharge medication reconciliation and counseling for this patient. 1. ACETAMINOPHEN 1000MG PO Q8H 2. ASPIRIN 81MG PO BIDCM X 4 WEEKS 3. FAMOTIDINE 20MG PO DAILY 4. MELOXICAM 7.5MG PO BID 5. OXYCODONE 1-2T PO Q4H PRN PAIN 4-10 6. SENNA/DOCUSATE 2T PO BID UNTIL FIRST BM, THEN PRN The patient's discharge medication list was reviewed for discrepancies and discrepancies were resolved. Home Medications ALPRAZolam [Xanax] 1 mg PO BID 02/24/20 ALPRAZolam [Xanax] 2 mg PO QHS 02/24/20 Amitriptyline HCl [Elavil] 25 mg PO QHS 02/24/20 Amlodipine [Norvasc] 5 mg PO BID 02/24/20 Cholecalciferol (Vitamin D3) [Vitamin D3] 25 mcg PO BID 02/24/20 Gemfibrozil [Lopid] 600 mg PO BID 02/24/20 Hydrochlorothiazide [Hctz] 12.5 mg PO DAILY 02/24/20 Lisinopril 20 mg PO BID 02/24/20 Metformin HCl 0.5 tab PO BID 02/24/20 Metoprolol Succinate [Toprol Xl] 50 mg PO QHS 02/24/20 Montelukast [Singulair] 10 mg PO QHS 02/24/20 Multivitamin 1 ea PO DAILY 02/24/20 Potassium Gluconate [Potassium] 99 mg PO QHS 02/24/20 Pravastatin [Pravachol] 40 mg PO QHS 02/24/20 Vitamin E 400 unit PO DAILY 02/24/20 Acetaminophen [Tylenol] 1,000 mg PO Q8 #100 tab 03/10/20 Aspirin [Aspirin, Baby] 81 mg PO BIDCM #60 tab 03/10/20 Famotidine [Pepcid] 20 mg PO DAILY #30 tab 03/10/20 Meloxicam [Mobic] 7.5 mg PO BID #60 tab 03/10/20 Oxycodone [Oxyir] 5 - 10 mg PO Q4H PRN PRN 4 Days #48 tab 03/10/20 Senna/Docusate Sodium [Senokot-S] 2 tab PO BID #14 tab 03/10/20 The patient was counseled on the following discharge medications and changes in medications for homegoing were reviewed. The Reason for Use, instructions for use, and potential side effects were reviewed for all new medications. The patient's questions regarding all of their medications were answered. The patient was able to verbally demonstrate an understanding of their discharge medications.
[2020-03-10 16:00] VITALS: BP 132/74; PULSE 96; RESP 14; TEMP 36.8; O2SAT 96
== END 2020-03-10 17:37 | disposition home or self-care (01) ==
LOC: SDC 08:49 → MS3 08:49
PROVIDERS: Anesthesiology; Admitting Provider Specialist; PCP Family Medicine; Referring Provider Specialist; Visit Provider Internal Medicine
PROC: 0SRD0JZ Replacement of Left Knee Joint with Synthetic Substitute, Open Approach (ICD-10-PCS; CPT 27447; principal; 2020-03-09 09:00)
DX: M17.12 Unilateral primary osteoarthritis, left knee (principal); Z20.828 Contact with and (suspected) exposure to other viral communicable diseases; I10 Essential (primary) hypertension; R94.31 Abnormal electrocardiogram [ECG] [EKG]; E11.9 Type 2 diabetes mellitus without complications; F41.9 Anxiety disorder, unspecified; Z79.899 Other long term (current) drug therapy; M79.7 Fibromyalgia; Z79.84 Long term (current) use of oral hypoglycemic drugs; E78.5 Hyperlipidemia, unspecified
CPT/HCPCS: 01400; 27447; 64447; S2900; 36415; 73560; 80048; 82962; 83036; 83735; 85025; 85027; 87081; 87426; 93005; 96361; 96365; 96366; 97110; 97162; 97166; 97530; 97535; 99218; 99251; C1776; C9803; J7120; G0378; G0379; G0463